=== PATIENT | female | born 1985 | race Two or more races ===

== ENCOUNTER 2018-12-01 08:50 | Emergency (ER) | payer MEDICAID ==
[~2018-12-01] VITALS: Ht 170.2 cm; Wt 95.3 kg
[2018-12-01 08:56] VITALS: BP 97/53
== END 2018-12-01 10:47 | disposition home or self-care (01) ==
LOC: ER 08:50
DX: S05.02XA Injury of conjunctiva and corneal abrasion without foreign body, left eye, initial encounter (principal); H11.32 Conjunctival hemorrhage, left eye; X58.XXXA Exposure to other specified factors, initial encounter; Y93.89 Activity, other specified; Y92.89 Other specified places as the place of occurrence of the external cause; Y99.8 Other external cause status